=== PATIENT | female | born 1985 | race Two or more races ===

== ENCOUNTER 2025-01-01 08:37 | Emergency (ER) | payer OTHER ==
[~2025-01-01] VITALS: Ht 167.6 cm; Wt 56.7 kg
[2025-01-01 09:50] VITALS: BP 129/65; TEMP 98.2; O2SAT 99
[2025-01-01] MEDS ORDERED: NALO4SPR BNOSTRILS (09:53)
== END 2025-01-01 10:01 ==
LOC: ER 08:50
DX: F11.10 Opioid abuse, uncomplicated (principal); F20.9 Schizophrenia, unspecified; F32.A Depression, unspecified; F19.10 Other psychoactive substance abuse, uncomplicated; Z59.00 Homelessness unspecified